=== PATIENT | male | born 1955 | race Caucasian/White ===

== ENCOUNTER 2017-01-07 05:34 | Inpatient (IN) | payer OTHER ==
[~2017-01-07] VITALS: Ht 185.4 cm; Wt 111.5 kg
[~2017-01-07 05:34] MED LIST: BENADRYL25 MG PO; LIBRAX, CLI1 CAPSULE PO; LIPITOR10 MG PO; LO-DOSE ASPIRIN81 M2 PO; TAMBOCOR100 MG PO; TOPROL XL50 MG PO; TYLENOL EXTRA500 MG PO
[2017-01-07 06:15] VITALS: BP 161/70
[2017-01-07 11:35] VITALS: BP 162/78
[2017-01-07 13:30] VITALS: BP 137/75
[2017-01-07 15:48] VITALS: BP 125/62
[2017-01-07 17:58] LABS: HEMATOCRIT 43.4 % (38.0-50.0)
[2017-01-07 20:05] VITALS: BP 129/64
[2017-01-08 00:28] VITALS: BP 143/69
[2017-01-08 04:20] VITALS: BP 126/60
[2017-01-08 05:01] LABS: HEMATOCRIT 36.3 % (38.0-50.0); MCV 90.8 FL (86-99)
[2017-01-08 05:03] LABS: CHLORIDE 104 mEq/L (99-109); POTASSIUM 4.5 mEq/L (3.7-5.4); SODIUM 138 mEq/L (136-147)
[2017-01-08 05:05] LABS: GLUCOSE 118 mg/dL (70-99)
[2017-01-08 05:06] LABS: ANION GAP 7 MEQ/L (2-14)
[2017-01-08 05:09] LABS: GFR ESTIMATE (CALCULATED) > 59 mL/min/
[2017-01-08 05:10] LABS: UREA NITROGEN (BUN) 12 mg/dL (9-23)
[2017-01-08 08:00] VITALS: BP 140/74
[2017-01-08 12:02] VITALS: BP 137/73
[2017-01-08 15:43] VITALS: BP 149/75
[2017-01-08 20:02] VITALS: BP 143/72
[2017-01-09 00:30] VITALS: BP 158/72
[2017-01-09 08:46] VITALS: BP 149/72
[2017-01-09] MEDS ORDERED: XARELTO10 MG PO (09:44)
[2017-01-09] MEDS ORDERED: OXYCODONE HCL5 MG PO (09:44)
[2017-01-09 12:05] VITALS: BP 151/71
[2017-01-09 16:10] VITALS: BP 159/70
== END 2017-01-09 16:10 | DRG 470 ==
LOC: 2SOUTH 05:34 → 3WEST 11:22 → 2SOUTH 12:01 → 3WEST 01-09 16:10
PROVIDERS: Orthopaedic Surgery; Physician Assistant
PROC: 0SRC0J9 Replacement of Right Knee Joint with Synthetic Substitute, Cemented, Open Approach (ICD-10-PCS; principal; 2017-01-07)
DX: M17.11 Unilateral primary osteoarthritis, right knee (principal); I10 Essential (primary) hypertension; I48.0 Paroxysmal atrial fibrillation; E78.2 Mixed hyperlipidemia; K58.0 Irritable bowel syndrome with diarrhea; E66.01 Morbid (severe) obesity due to excess calories; Z68.32 Body mass index [BMI] 32.0-32.9, adult; Z79.82 Long term (current) use of aspirin; Z88.0 Allergy status to penicillin
CPT/HCPCS: 80048; 85014; 85018; C1713; J0131; J0690; J1100; J1885; J2250; J2405; J3010; J7050; J7120; L1820; S0020